=== PATIENT | male | born 1950 | race African-American/Black ===

== ENCOUNTER 2025-03-30 07:40 | Outpatient (OUT) | payer MEDICARE, SELFPAY ==
--- OUTSIDE RECORDS SUMMARY | 2025-03-25 09:00 | XMS_ITS | Encounter Summary ---
Author Organization [facility] Address [address] [place] [address] Care Team Providers Care Container Packer Operator Name Role Phone Jameson Cain MD Primary Care Provider [phone] Nidhi Brumfield NP Unavailable [phone] Reason for Referral * Consultation (Routine) - Authorized Specialty Diagnoses / Procedures Referred By Contodalis harding Referred To Contact General Surgery Diagnoses Screening for colon cancer Procedures AR OFFICE/OUTPATIENT NEW HIGH MDM 60 MINUTES April Benson NP [address] [place] [address] Phone: tel: fax: Anup Jo MD [address] [place] [address] Phone: tel: fax: Referral ID Status Reason Start Date Expiration Date Visits Requested Visits Authorized [id number] Authorized Specialty Services Required 03/25/2025 09/21/2025 1 1 Scheduling Instructions Would like procedure and office visit in [place] if possible Reason for Visit * Reason Comments Medicare Annual Wellness Visit Initial Encounter Details Date Type Department Care Team (Late st Contact Info) Description 03/25/2025 9:00 AM EDT Office Visit [facility] [address] [place] [address] April Benson NP [address] [place] [address] Medicare annual wellness visit, subsequent (Primary Dx); Type 2 diabetes mellitus with other specified complication (HCC); Male erectile dysfunction, unspecified; Benign essential HTN ; Uncontrolled type 2 diabetes mellitus with hyperglycemia (HCC); Mixed hyperlipidemia ; Screening for colon cancer Social History Tobacco Use Types Packs/Day Years Used Date Smoking Tobacco: Never Passive Smoke Exposure: Never Smokeless Tobacco: Never Alcohol Use Standard Drinks/Week Comments Never 0 (1 standard drink = 0.6 oz pur e alcohol) PHQ-2 Answer Date Recorded Patient Health Questionnaire-2 Score 0 03/25/2025 Sex and Gender Information Value Date Recorded Sex Assigned at Not on file Legal Sex Male 7:18 PM EDT Gender Identity Not on file Sexual Orientation Not on file documented as of this encounter Last Filed Vital Signs Vital Sign Reading Time Taken Comments Blood Pressure 132/80 03/25/2025 8:38 AM EDT Pulse 81 03/25/2025 8:38 AM EDT Temperature 36.6 C (97.8 F) 03/25/2025 8:38 AM EDT Respiratory Rate 18 03/25/2025 8:38 AM EDT Oxygen Saturation 97% 03/25/2025 8:38 AM EDT Inhaled Oxygen Concentration - - Weight 94.6 kg (208 lb 9.6 oz) 03/25/2025 8:38 A M EDT Height - - Body Mass Index 27.52 10/12/2024 2:27 PM EST documented in this encounter Functional Status * Over the past 2 weeks, how often have you been bothered by any of the following problems? Question Answer Date of Assessment Author Little interest or pleasure in doing things Not at all 03/25/2025 8:41 AM EDT GARY RESENDIZ Feeling down, depressed, or hopeless Not at all 03/25/2025 8:41 AM EDT GARY RESENDIZ Patient Health Questionnaire -2 Score 0 03/25/2025 8:41 AM EDT GARY RESENDIZ * Question Answer Date of Assessment Author Trouble falling or staying asleep, or sleeping too much Not at all 03/25/2025 8:41 AM PALMERT WILMA BACK Feeling tired or having darcie le energy Several days 03/25/2025 8:41 AM EDT GARY RESENDIZ Poor appetite or overeating Several days 03/25/2025 8: 41 AM EDT WILMA RESENDIZ Feeling bad about yourself - or that you are a failure or have let yourself or your family down Not at all 03/25/2025 8:41 AM EDT GARY RESENDIZ Trouble concentrating on things, such as reading the newspaper or watching television Not at all 03/25/2025 8:41 AM EDT GARY RESENDIZ A Moving or speaking so slowly that other people could have noticed? Or the opposite - being so fidgety or restless that you have been moving around a lot more than usual. Several days 03/25/2025 8:41 AM EDT WILMA URBAN Thoughts that you would be better off or hurting yourself in some way Not at all 03/25/2025 8:41 AM EDT WALLY RESENDIZ Patient Health Questionnaire -9 Score 3 03/25/2025 8:41 AM EDT GARY RESENDIZ documented as of this encounter Patient Instructions * Patient Instructions* April Benson NP - 03/25/2025 9:00 AM EDT Continued progress with diabetes Get labs fasting Colonoscopy: Dr Jo, the office should call you documented in this encounter Progress Notes * April Benson NP - 03/25/2025 9:20 AM EDTAssociated Problem(s): Medicare annual wellness visit, subsequent Reviewed Ht/Wt/BMI Recommend eye exam yearly Recommend dental exams twice a year Balance work/leisure activities Exercises is recommended most days of the week (appropriate as chronic conditions allow) Follow up yearly and prn * April Benson NP - 03/25/2025 9:00 AM EDT Images from the original note were not included. Milind Cisneros is a 74 y.o. male presents with chief complaint of Medicare Annual Wellness Visit Initial HPI: Diet: 1 meal daily, snacks Activity: used to swim Mental Health Concerns: none Falls in the last year: no Still driving: yes Do you pay your bills: yes Any hearing problems:age related hearing loss Any Vision problems: 2023, prescription Any Hospitalizations in the last year: no Specialist: no HCPOA/Living Will: yes Concerns: Diabetes He presents for his follow-up diabetic visit. He has type 2 diabetes mellitus. His disease course has been improving. There are no hypoglycemic associated symptoms. Pertinent negatives for hypoglycemia include no dizziness, nervousness/anxiousness, seizures or tremors. Associated symptoms include po lyuria. Pertinent negatives for diabetes include no blurred vision, no chest pain, no fatigue, no foot paresthesias, no polydipsia, no polyphagia and no visual change. There are no hypoglycemic complications. Symptoms are improving. Diabetic complications include nephropathy. Pertinent negatives for diabetic complications include no CVA, impotence or peripheral neuropathy. Risk factors for coronary artery disease include diabetes mellitus, dyslipidemia and male sex. Current diabetic treatment includes oral agent (triple therapy). He is compliant with treatment all of the time. An GABRIEL inhibitor/angiotensin II receptor yulia is not being taken. He does not see a fuel storage technician.Eye exam is current. SUBJECTIVE: MEDICATIONS: Current Outpatient Medications Medication Instructions aspirin 81 MG EC tablet Every 24 hours atorvastatin (LIPITOR) 20 mg, Oral, Daily glipiZIDE (GLUCOTROL) 10 mg, Oral, 2 times daily before meals loratadine (CLARITIN) 10 mg, Oral, Every 24 hours Multiple Vitamins-Minerals (Multivitamin Adults 50+) tablet Every 24 hours SITagliptin-metFORMIN ER (Janumet XR) 100-1000 MG per 24 hr tablet 1 tablet, Oral, Daily with breakfast ALLERGIES: No Known Allergies REVIEW OF SYMPTOMS: Review of Systems Constitutional: Negative for activity change, appetite change, fatigue and unexpected weight change. HENT: Negative for ear pain, nosebleeds, sneezing, trouble swallowing and voice change. Eyes: Negative for blurred vision, pain, discharge and visual disturbance. Respiratory: Negative for apnea, chest tightness and wheezing. Cardiovascular: Negative for chest pain and leg swelling. Gastrointestinal: Negative for abdominal distention, blood in stool, constipation and diarrhea. Genitourinary: Negative for decreased urine volume, difficulty urinating, dysuria, hematuria and impotence. Skin: Negative for color change. Neurological: Negative for dizziness, tremors and seizures. Psychiatric/Behavioral: Negative for agitation, decreased concentration, hallucinations, self-injury and suicidal ideas. The patient is not nervous/anxious. Hematological: Negative for adenopathy. Does not bruise/bleed easily. Endocrine: Positive for polyuria. Negative for cold intolerance, heat intolerance, polydipsia and polyphagia. Allergic/Immunologic: Negative for environmental allergies and food allergies. PAST MEDICAL HISTORY Past Medical History: Diagnosis Date HTN (hypertension) Hyperlipidemia Type II diabetes mellitus (HCC) History reviewed. No pertinent surgical history. family history includes No Known Problems in his father and mother. OBJECTIVE: Visit Vitals BP 132/80 (BP Location: Left arm, Patient Position: Sitting, BP Cuff Size: Adult long) Pulse 81 Temp 97.8 ??F (Temporal) Resp 18 Wt 208 lb 9.6 oz SpO2 97% BMI 27.52 kg/m?? Smoking Status Never BSA 2.21 m?? Physical Exam Vitals and nursing note reviewed. Constitutional: Appearance: Normal appearance. HENT: Head: Normocephalic. Right Ear: External ear normal. Left Ear: External ear normal. Nose: Nose normal. Mouth/Throat: Mouth: Mucous membranes are moist. Pharynx: Oropharynx is clear. Eyes: Extraocular Movements: Extraocular movements intact. Conjunctiva/sclera: Conjunctivae normal. Cardiovascular: Rate and Rhythm: Normal rate and regular rhythm. Pulses: Normal pulses. Heart sounds: Normal heart sounds. Pulmonary: Effort: Pulmonary effort is normal. Breath sounds: Normal breath sounds. Abdominal: General: Bowel sounds are normal. Palpations: Abdomen is soft. Musculoskeletal: Cervical back: Neck supple. Skin: General: Skin is warm and dry. Capillary Refill: Capillary refill takes 2 to 3 seconds. Neurological: General: No focal deficit present. Mental Status: He is alert. Psychiatric: Mood and Affect: Mood normal. Behavior: Behavior normal. Thought Content: Thought content normal. Judgment: Judgment normal. ASSESSMENT AND PLAN: Follow up in about 3 months (around 06/25/2025) for Recheck. Problem List Items Addressed This Visit Uncontrolled type 2 diabetes mellitus with hyperglycemia (HCC) (Chronic) Check blood sugars daily, notify if <70 or >200. Take medications (pills or insulin) as directed. Monitor for s/s of hypoglycemia (sweaty, dizziness, nausea, vomiting, or shakiness). Watch for increase in thirst, urination, or appetite. Inspect feet frequently monitoring for open wounds , andalso recommend yearly eye exam. Pt should attempt to remain as physically active as chronic conditions allow, as well as trying to follow a diet low in carbohydrates, and simple sugars. Current meds: asa, statin, RINCON, janumet XR A1c: 8.7% 03/25/25 prior 10/24 10.9% Reluctant to add meds, we will check labs, consider adding SGLT 2 or evening dose of metformin depending on Cr Relevant Orders POCT glycosylated hemoglobin (Hb A1C) docked device (Completed) Benign essential HTN Please check blood pressure daily and record DASH diet Limit caffeine Contact office if chest pain, pressure, dizziness, shortness of breath, swelling legs Current meds: none Hyperlipidemia On statin therapy Check labs yearly and prn dose change Type 2 diabetes mellitus with other specified complication (HCC) HLD, ED Male erectile dysfunction, unspecified Screening for colon cancer Relevant Orders Ambulatory referral to General Surgery Medicare annual wellness visit, subsequent - Primary Reviewed Ht/Wt/BMI Recommend eye exam yearly Recommend dental exams twice a year Balance work/leisure activities Exercises is recommended most days of the week (appropriate as chronic conditions allow) Follow up yearly and prn * April Benson NP - 03/25/2025 6:19 AM EDTAssociated Problem(s): Hyperlipidemia On statin therapy Check labs yearly and prn dose change * April Benson NP - 03/25/2025 6:19 AM EDTAssociated Problem(s): Uncontrolled type 2 diabetes mellitus with hyperglycemia (HCC) Check blood sugars daily, notify if <70 or >200. Take medications (pills or insulin) as directed. Monitor for s/s of hypoglycemia (sweaty, dizziness, nausea, vomiting, or shakiness). Watch for increase in thirst, urination, or appetite. Inspect feet frequently monitoring for open wounds , andalso recommend yearly eye exam. Pt should attempt to remain as physically active as chronic conditions allow, as well as trying to follow a diet low in carbohydrates, and simple sugars. Current meds: asa, statin, RINCON, janumet XR A1c: 8.7% 03/25/25 prior 10/24 10.9% Reluctant to add meds, we will check labs, consider adding SGLT 2 or evening dose of metformin depending on Cr * April Benson NP - 03/25/2025 6:18 AM EDTAssociated Problem(s): Type 2 diabetes mellitus with other specified complication (HCC) HLD, ED * April Benson NP - 03/25/2025 6:18 AM EDTAssociated Problem(s): Benign essential HTN Please check blood pressure daily and record DASH diet Limit caffeine Contact office if chest pain, pressure, dizziness, shortness of breath, swelling legs Current meds: none documented in this encounter Plan of Treatment Upcoming Encounters Date Type Department Care Team (Late st Contact Info) Description 06/28/2025 9:20 AM EDT Office Visit [facility] [address] [place] [address] April Benson NP [address] [place] [address] 03/28/2026 10:00 AM EDT Office Visit [facility] [address] [place] [address] April Benson NP [address] [place] [address] Scheduled Referrals Name Type Priority Associated Diagnoses Order Schedule Ambulatory referral to General Surgery Outpatient Referral Routine Screening for colon cancer Expected: 03/25/2025 (Approximate), Expires: 09/24/2025 documented as of this encounter Procedures Procedure Name Priority Date/Time Associated Diagnosis Comments POCT GLYCOSYLATED HEMOGLOBIN (HGB A1C) Routine 03/25/2025 9:00 AM EDT Uncontrolled type 2 diabetes mellitus with hyperglycemia (HCC) documented in this encounter Results * (ABNORMAL) POCT glycosylated hemoglobin (Hb A1C) docked device (03/25/2025 9:00 AM EDT) Hemoglobin A1C 8.7 Blood Venous blood specimen / Unknown 03/25/2025 9:00 AM EDT April Benson NP POINT OF CARE TEST ENTER/EDIT O RDERABLES Final Result documented in this encounter Visit Diagnoses Diagnosis Medicare annual wellness visit, subsequent- Primary Type 2 diabetes mellitus with other specified complication (HCC) Male erectile dysfunction, unspecified Benign essential HTN Uncontrolled type 2 diabetes mellitus with hyperglycemia (HCC) Mixed hyperlipidemia Mixed hyperlipidemia Screening for colon cancer Special screening for malignant neoplasms, colon documented in this encounter Additional Health Concerns Assessment Noted Time PHQ-9 Depression Total Score: 3 03/25/20 25 8:41 AM EDT documented as of this encounter Care Teams Container Packer Operator Relationship Specialty Start Date End Date Jameson Cain MD [address] [place] [address] PCP - General Family Medicine 06/11/24 Nidhi Brumfield NP [address] [place] [address] Nurse Practitioner Family Medicine 06/11/24 documented as of this encounter
--- OUTSIDE RECORDS SUMMARY | 2025-03-30 07:47 | XMS_ITS | Clinical Summary ---
Author Organization [facility] Address [address] [place] [address] Care Team Providers Care Supervising Broker Name Role Phone Unavailable Primary Care Provider Unavailabl e Medications aspirin EC 81 MG EC tablet TAKE 1 TABLET PO ONE TIME DAILY 0 0 1 Active Blood Glucose Monitoring Suppl (ONE TOUCH BASIC SYSTEM) W/DEVICE KITIndications:DM II (diabetes mellitus, type II), controlled (HCC) USE DIRECTED BY PHYSICIAN 1 0 3 Active metFORMIN (GLUCOPHAGE) 500 MG tabletIndications :DM II (diabetes mellitus, type II), controlled (HCC) Take one half tablet twice daily with breakfast and supper for 2 weeks then increase to one whole tablet twice daily for 2 weeks then increase to 1 and 1/2 tablets twice daily for 2 weeks then increase to 2 tablets twice daily thereafter. Take with breakfast and supper for diabetes. 360 1 3 Active glipiZIDE (GLUCOTROL) 5 MG tabletIndications :DM II (diabetes mellitus, type II), controlled (HCC) Take 1/2 tablet 30 minutes before breakfast and supper. If after one week, pre-meal blood sugars are still above 140, increase to one whole tablet before breakfast and supper. May increase or decrease dose to treat to target premeal blood sugars of 100-140, not to exceed 10 mg twice daily. 360 1 3 Active glipiZIDE (GLUCOTROL) 5 MG tablet TAKE 1/2 TABLET 30 MINUTES BEFORE BREAKFAST AND BEFORE DINNER, IF AFTER ONE WEEK THE PREMEAL BLOOD SUGAR IS STILL >140 INCREASE TO 1 WHOLE TABLET BEFORE BREAKFAST AND BEFORE DINNER MAY INCREASE OR DECREASE DOSE TO TREAT TO TARGET PREMEAL BS 100-140, NOT TO EXCEED 10MG TWICE DAILY 360 1 3 Active metFORMIN (GLUCOPHAGE) 500 MG tablet TAKE 1/2 TABLET TWICE DAILY WITH BREAKFAST AND WITH DINNER FOR 2 WEEKS, THEN TAKE 1 TABLET TWICE DAILY FOR 2 WEEKS, THEN TAKE 1 AND 1/2 TABLETS TWICE DAILY FOR 2 WEEKS, THEN TAKE 2 TABLETS TWICE DAILY THEREAFTER 360 1 3 Active Glucose Blood (BLOOD GLUCOSE TEST STRIPS) STRPIndications:D M (diabetes mellitus), type 2, uncontrolled USE DIRECTED BY PHYSICIAN 100 8 3 Active Active Problems Problem Noted Date Diagnosed Date DM (diabetes mellitus), type 2, uncontrolled DM (diabetes mellitus) 10/08/2012 Hyperlipidemia 01/18/2010 AR (allergic rhinitis) 03/21/2007 Resolved Problems Problem Noted Date Diagnosed Date Resolved Date DM (diabetes mellitus), type 2, uncontrolled 8 08/05/2008 DM (diabetes mellitus), type 2 03/23/2008 12/01/2012 Overview (06/17/2014): FOOT EXAM 01/07 EYE EXAM 2007 ED (erectile dysfunction) of organic origin 12/15/2007 07/04/2011 History of alcohol dependence 03/21/2007 01/20/2010 Overview (06/17/2014): HARD LIQUOR AND BEER 3-4X WEEK Family history of prostate cancer 03/21/2007 03/23/2008 Overview (06/17/2014): FATHER Family history of diabetes mellitus (DM) 03/21/2007 03/23/2008 Overview (06/17/2014): MOTHER Family History Medical History Relation Name Comments Prostate Cancer Father Diabetes Mother Relation Name Status Comments Father Mother Social History Tobacco Use Types Packs/Day Years Used Date Smoking Tobacco: Never Sex and Gender Information Value Date Recorded Sex Assigned at Not on file Legal Sex Male 7:49 PM EDT Gender Identity Not on file Sexual Orientation Not on file Last Filed Vital Signs Vital Sign Reading Time Taken Comments Blood Pressure 104/68 12/01/2012 4:13 PM EST Pulse 88 12/01/2012 4:13 PM EST Temperature 36.5 C (97.7 F) 12/01/2012 4:13 PM EST Respiratory Rate 20 12/01/2012 4:13 PM EST Oxygen Saturation - - Inhaled Oxygen Concentration - - Weight 101 kg (222 lb 9.6 oz) 12/01/2012 4:13 PM EST Height 185.4 cm (6' 1 ) 12/01/2012 4:13 PM EST Body Mass Index 29.37 12/01/2012 4:13 PM EST Plan of Treatment Not on file
--- OUTSIDE RECORDS SUMMARY | 2025-03-30 07:47 | XMS_ITS | Encounter Summary ---
Author Organization [facility] Address [address] [place] [address] Care Team Providers Care Reel Tender Name Role Phone Jameson Cain MD Primary Care Provider [phone] Nidhi Brumfield CERTIFIED PUBLIC ACCOUNTANT Unavailable [phone] Reason for Visit * Reason Comments Med Refill Encounter Details Date Type Department Care Team (Late st Contact Info) Description 03/01/2024 Refill [facility] [address] [place] [phone] Shaikh Choi MD [address] [place] [address] Type 2 diabetes mellitus without complication, without long-term current use of insulin (HCC) Social History Tobacco Use Types Packs/Day Years Used Date Smoking Tobacco: Never Assessed Sex and Gender Information Value Date Recorded Sex Assigned at Not on file Legal Sex Male 7:18 PM EDT Gender Identity Not on file Sexual Orientation Not on file documented as of this encounter Plan of Treatment Upcoming Encounters Date Type Department Care Team (Late Contact Info) Description 06/28/2025 9:20 AM EDT Office Visit [facility] [address] [place] [address] April Benson NP [address] [place] [phone] 03/28/2026 10:00 AM EDT Office Visit [facility] [address] [place] [address] April Benson NP [address] [place] [address] documented as of this encounter Visit Diagnoses Diagnosis Type 2 diabetes mellitus without complication, without long-term current use of insulin (HCC) documented in this encounter Care Teams Reel Tender Relationship Specialty Start Date End Date Jameson Cain MD [address] [place] [address] PCP - General Family Medicine 06/11/24 Nidhi Brumfield NP [address] [place] [phone] Nurse Practitioner Family Medicine 06/11/24 documented as of this encounter
--- OUTSIDE RECORDS SUMMARY | 2025-03-30 07:47 | XMS_ITS | Encounter Summary ---
Author Organization [facility] Address [address] [place] [address] Care Team Providers Care Food Consultant Name Role Phone Jameson Cain MD Primary Care Provider [phone] Nidhi Brumfield NP Unavailable [phone] Reason for Visit * Reason Comments Med Refill Encounter Details Date Type Department Care Team (Late st Contact Info) Description 08/30/2023 Refill [facility] [address] [place] [address] Shaikh Choi MD [address] [place] [phone] Type 2 diabetes mellitus without complication, without long-term current use of insulin (HCC) (Primary Dx) Social History Tobacco Use Types Packs/Day Years Used Date Smoking Tobacco: Never Assessed Sex and Gender Information Value Date Recorded Sex Assigned at Not on file Legal Sex Male 7:18 PM EDT Gender Identity Not on file Sexual Orientation Not on file documented as of this encounter Miscellaneous Notes * Telephone Encounter - Shaikh Steph MD - 09/02/2023 1:23 PM EST Approving, but needs appt for additional refills. documented in this encounter Plan of Treatment Upcoming Encounters Date Type Department Care Team (Late st Contact Info) Description 06/28/2025 9:20 AM EDT Office Visit [facility] [address] [place] [address] April Benson, MARILYNN [address] [place] [phone] 03/28/2026 10:00 AM EDT Office Visit [facility] [address] [place] [address] April Benson, MARILYNN [address] [place] [address] documented as of this encounter Visit Diagnoses Diagnosis Type 2 diabetes mellitus without complication, without long-term current use of insulin (HCC)- Primary documented in this encounter Care Teams Food Consultant Relationship Specialty Start Date End Date Jameson Cain MD [address] [place] [phone] PCP - General Family Medicine 06/11/24 Nidhi Brumfield NP [address] [place] [phone] Nurse Practitioner Family Medicine 06/11/24 documented as of this encounter
--- OUTSIDE RECORDS SUMMARY | 2025-03-30 07:47 | XMS_ITS | Clinical Summary ---
Author Organization [facility] tem Address [id number] [address] [place] [address] Care Team Providers Care Commercial Fisherman Name Role Phone Nidhi Brumfield SURFACE WATER MANAGER-NOCTURNIST Primary Care Pr ovider Social History Tobacco Use Types Packs/Day Years Used Date Smoking Tobacco: Never Assessed Childcare Answer Date Recorded Childcare Unknown 03/11/2019 Employment Answer Date Recorded Employment Unknown 03/11/2019 Sex and Gender Information Value Date Recorded Sex Assigned at Not on file Legal Sex Male 11:38 AM EDT Gender Identity Not on file Sexual Orientation Not on file Plan of Treatment Health Maintenance Due Date Last Done Comments Diabetic Ophthalmology Exam 1951 Depression Screening 1963 Tobacco Screening 1963 Adult BMI Screening 1969 Diabetic Foot Exam 1969 DTaP,Tdap and Td Vaccines (1 - Tdap) 1970 Zoster (Shingles) Vaccine (1 of 2) 2001 Fall Risk Screening 2016 COVID-19 Vaccine ( season) 2024, 12/23/2020 Influenza Vaccine 05/31/2025 Medical Devices Not on file Insurance [employer] MEDICARE Care Teams Commercial Fisherman Relationship Specialty Start Date End Date Nidhi Brumfield APRN-NOCTURNIST [address] [place] [address] PCP - General Nurse Practitioner 06/25/24
--- OUTSIDE RECORDS SUMMARY | 2025-03-30 07:47 | XMS_ITS | Encounter Summary ---
Author Organization [facility] Address [address] [place] [address] Care Team Providers Care Inspector Line Name Role Phone Jameson Cain MD Primary Care Provider [phone] Nidhi Brumfield ACADEMIC AFFAIRS ASSISTANT Unavailable [phone] Reason for Visit * Reason Comments Med Refill Encounter Details Date Type Department Care Team (Late Contact Info) Description 03/17/2025 Refill [facility] [address] [place] [phone] Jameson Cain MD [address] [place] [address] Mixed hyperlipidemia Social History Tobacco Use Types Packs/Day Years Used Date Smoking Tobacco: Never Passive Smoke Exposure: Never Smokeless Tobacco: Never Alcohol Use Standard Drinks/Week Comments Never 0 (1 standard drink = 0.6 oz pur e alcohol) PHQ-2 Answer Date Recorded Patient Health Questionnaire-2 Score 0 06/22/2024 Sex and Gender Information Value Date Recorded Sex Assigned at Not on file Legal Sex Male 7:18 PM EDT Gender Identity Not on file Sexual Orientation Not on file documented as of this encounter Miscellaneous Notes * Telephone Encounter - LINDA HERNÁNDEZ - 03/18/2025 8:22 AM EDT MEDICATION SENT TO [facility] documented in this encounter Plan of Treatment Upcoming Encounters Date Type Department Care Team (Late Contact Info) Description 06/28/2025 9:20 AM EDT Office Visit [facility] [address] [place] [address] April Benson, MARILYNN [address] [place] [address] 03/28/2026 10:00 AM EDT Office Visit [facility] [address] [place] [address] April Benson, MARILYNN [address] [place] [phone] documented as of this encounter Visit Diagnoses Diagnosis Mixed hyperlipidemia Mixed hyperlipidemia documented in this encounter Care Teams Inspector Line Relationship Specialty Start Date End Date Jameson Cain MD [address] [place] [phone] PCP - General Family Medicine 06/11/24 Nidhi Brumfield NP [address] [place] [phone] Nurse Practitioner Family Medicine 06/11/24 documented as of this encounter
--- OUTSIDE RECORDS SUMMARY | 2025-03-30 07:47 | XMS_ITS | Encounter Summary ---
Author Organization [facility] Address [address] [place] [address] Care Team Providers Care Auto Radio Mechanic Name Role Phone Jameson Cain MD Primary Care Provider [phone] Nidhi Brumfield NP Unavailable [phone] Reason for Visit * Reason Comments Med Refill Encounter Details Date Type Department Care Team (Late Contact Info) Description 03/17/2025 Refill [facility] [address] [place] [address] April Benson NP [address] [facility] [place] [address] Type 2 diabetes mellitus without complication, without [...] 06/28/2025 9:20 AM EDT Office Visit [facility] [address] [place] [address] April Benson NP [address] [place] [address] 03/28/2026 10:00 AM EDT Office Visit [facility] [address] [place] [address] April Benson NP [address] [place] [address] documented as of this encounter Visit Diagnoses Diagnosis Type 2 diabetes mellitus without complication, without long-term current use of insulin (HCC) documented in this encounter Care Teams Auto Radio Mechanic Relationship Specialty Start Date End Date Jameson Cain MD [address] [place] [phone] PCP - General Family Medicine 06/11/24 Nidhi Brumfield NP [address] [place] [phone] Nurse Practitioner Family Medicine 06/11/24 documented as of this encounter
--- OUTSIDE RECORDS SUMMARY | 2025-03-30 07:47 | XMS_ITS | Encounter Summary ---
Author Organization [facility] Address [address] [place] [address] Care Team Providers Care Escalator Installer Name Role Phone Jameson Cain MD Primary Care Provider [phone] Nidhi Brumfield NP Unavailable [phone] Reason for Visit * Reason Comments Med Refill Encounter Details Date Type Department Care Team (Late Contact Info) Description 12/25/2023 Refill [facility] [address] [place] [address] Shaikh Choi MD [address] [place] [address] Social History Tobacco Use Types Packs/Day Years [...] 06/28/2025 9:20 AM EDT Office Visit [facility] [address] [place] [address] April Benson NP [address] [place] [phone] 03/28/2026 10:00 AM EDT Office Visit [facility] [address] [place] [address] April Benson NP [address] [place] [address] documented as of this encounter Visit Diagnoses Not on filedocumented in this encounter Care Teams Escalator Installer Relationship Specialty Start Date End Date Jameson Cain MD [address] [place] [address] PCP - General Family Medicine 06/11/24 Nidhi Brumfield NP [address] [place] [address] Nurse Practitioner Family Medicine 06/11/24 documented as of this encounter
--- OUTSIDE RECORDS SUMMARY | 2025-03-30 07:47 | XMS_ITS | Clinical Summary ---
Author Organization [facility] Address [address] [place] [address] Care Team Providers Care Corsets Salesperson Name Role Phone Jameson Cain MD Primary Care Provider [phone] Nidhi Brumfield NP Unavailable [phone] Allergies No known active allergies Medications aspirin 81 MG EC tablet 1 (one) time each day at the same time Active Multiple Vitamins-Minerals (Multivitamin Adults 50+) tablet 1 (one) time each day at the same time Active SITagliptin-metFOR MIN ER (Janumet XR) 100-1000 MG per 24 hr tabletIndications: Uncontrolled type 2 diabetes mellitus with hyperglycemia (HCC) Take 1 tablet by mouth in the morning. Take with meals. 90 tablet 3 10/12/19 25 026 Active loratadine (Claritin) 10 MG tabletIndications: Allergic rhinitis, unspecified seasonality, unspecified trigger Take 1 tablet (10 mg) by mouth 1 (one) time each day at the same time 30 tablet 5 01/15/20 25 Active glipiZIDE (Glucotrol) 10 MG tabletIndications: Type 2 diabetes mellitus without complication, without long-term current use of insulin (HCC) Take 1 tablet (10 mg) by mouth in the morning and 1 tablet (10 mg) in the evening. Take before meals. 180 tablet 01/20/20 25 025 Active atorvastatin (Lipitor) 20 MG tabletIndications: Mixed hyperlipidemia TAKE 1 TABLET BY MOUTH DAILY 90 tablet 3 03/18/20 25 Active atorvastatin (Lipitor) 20 MG tabletIndications: Mixed hyperlipidemia Take 1 tablet (20 mg) by mouth Daily 90 tablet 01/15/20 25 025 Discontinued Active Problems Problem Noted Date Diagnosed Date Screening for colon cancer 03/25/2025 Medicare annual wellness visit, subsequent 03/25 Assessment & Plan (03/25/2025 9:20 AM EDT): Reviewed Ht/Wt/BMI Recommend eye exam yearly Recommend dental exams twice a year Balance work/leisure activities Exercises is recommended most days of the week (appropriate as chronic conditions allow) Follow up yearly and prn Type 2 diabetes mellitus with other specified co mplication 02/25/2025 Assessment & Plan (03/25/2025 6:18 AM EDT): HLD, ED Male erectile dysfunction, unspecified Screening for prostate cancer 02/25/2025 Benign essential HTN 06/22/2024 Assessment & Plan (03/25/2025 6:18 AM EDT): Please check blood pressure daily and record DASH diet Limit caffeine Contact office if chest pain, pressure, dizziness, shortness of breath, swelling legs Current meds: none Assessment & Plan (10/12/2024 3:01 PM EST): Currently not taking any medications Does not check BP at home; Denies orthostatic changes, dizziness, cough, shortness of breath, swelling in extremities. Averages at home 125/72. Consistently less than 30/80; Although is slightly elevated in office today. Continue current regimen. Given BP log, advised pt to record BP and bring log back with them to next visit. Assessment & Plan (06/23/2024 12:04 PM EDT): Currently not taking any medications Does not check BP at home; Denies orthostatic changes, dizziness, cough, shortness of breath, swelling in extremities. Continue current regimen. Given BP log, advised pt to record BP and bring log back with them to next visit. Uncontrolled type 2 diabetes mellitus with hyper glycemia 01/26/2013 Assessment & Plan (03/25/2025 9:28 AM EDT): Check blood sugars daily, notify if <70 or >200. Take medications (pills or insulin) as directed. Monitor for s/s of hypoglycemia (sweaty, dizziness, nausea, vomiting, or shakiness). Watch for increase in thirst, urination, or appetite. Inspect feet frequently monitoring for open wounds , and also recommend yearly eye exam. Pt should attempt to remain as physically active as chronic conditions allow, as well as trying to follow a diet low in carbohydrates, and simple sugars. Current meds: asa, statin, RINCON, janumet XR A1c: 8.7% 03/25/25 prior 10/24 10.9% Reluctant to add meds, we will check labs, consider adding SGLT 2 or evening dose of metformin depending on Cr Assessment & Plan (10/12/2024 3:18 PM EST): Currently taking Glipizide and Janumet 50mg-100mg Most recent labs: hemoglobin A1C 12.8% Does not check FSBS At home; Increased Janumet dosing today. Pt is reluctant to start Lantus, requests opportunity to manage BG levels without injectables at this time. Advised pt to closely monitor BG levels and change diet regimen. Will recheck levels in 3 months. If no improvement at that time will need to initiate Lantus. No episode of hypoglycemia No medication adverse effects reported by the patient. Patient educated on lifestyle modifications, dietary restrictions, signs and symptoms of hypoglycemia/hyperglycemia and importance of eating regular consistent meals. Stressed upon importance of checking blood glucose at home and bring blood glucose log to appointments. All questions, concerns answered and addressed. Encouraged to call office if persistent hypoglycemia/hyperglycemia on home glucose monitoring noted. Assessment & Plan (06/22/2024 10:59 AM EDT): Currently taking Glipizide and Janumet 50mg-100mg Most recent labs: hemoglobin A1C NEEDS DONE; Ordered today Does not check FSBS At home; No episode of hypoglycemia No medication adverse effects reported by the patient. Patient educated on lifestyle modifications, dietary restrictions, signs and symptoms of hypoglycemia/hyperglycemia and importance of eating regular consistent meals. Stressed upon importance of checking blood glucose at home and bring blood glucose log to appointments. All questions, concerns answered and addressed. Encouraged to call office if persistent hypoglycemia/hyperglycemia on home glucose monitoring noted. DM Eye Exam Last year: Is scheduling exam; Hyperlipidemia 01/18/2010 Assessment & Plan (03/25/2025 6:19 AM EDT): On statin therapy Check labs yearly and prn dose change Assessment & Plan (10/12/2024 3:02 PM EST): Currently taking Atorvastatin 20mg Denies any myalgias. Needs Lipid panel done. Ordered today Continue current regimen. Assessment & Plan (06/22/2024 10:59 AM EDT): Currently taking Atorvastatin 20mg Denies any myalgias. Needs Lipid panel done. Ordered today Continue current regimen. AR (allergic rhinitis) 03/21/2007 Resolved Problems Problem Noted Date Diagnosed Date Resolved Date Erectile dysfunction 06/22/2024 025 Encounters Date Type Department Care Team Description 03/25/2025 9:00 AM EDT Office Visit [facility] [address] [place] [address] April Benson NP Medicare annual wellness visit, subsequent (Primary Dx); Type 2 diabetes mellitus with other specified complication (HCC); Male erectile dysfunction, unspecified; Benign essential HTN ; Uncontrolled type 2 diabetes mellitus with hyperglycemia (HCC); Mixed hyperlipidemia ; Screening for colon cancer 03/25/2025 Bamboo flowsheet [facility] [address] [place] [address] April Benson NP 03/17/2025 Refill [facility] [address] [place] [address] April Benson NP Type 2 diabetes mellitus without complication, without long-term current use of insulin (HCC) 03/17/2025 Refill [facility] [address] [place] [address] Jameson Cain MD Mixed hyperlipidemia 01/18/2025 Refill [facility] [address] [place] [address] April Benson NP Type 2 diabetes mellitus without complication, without long-term current use of insulin ([facility]) 01/14/2025 Refill [facility] [address] [place] [phone] Jameson Cain MD Allergic rhinitis, unspecified seasonality, unspecified trigger (Primary Dx); Mixed hyperlipidemia from Last 3 Months Immunizations Immunization Administration Dates Next Due Moderna SARS-CoV-2 Vaccination 01/20/2021,2020 Family History Medical History Relation Name Comments No Known Problems Father No Known Problems Mother Relation Name Status Comments Father Mother Social History Tobacco Use Types Packs/Day Years Used Date Smoking Tobacco: Never Passive Smoke Exposure: Never Smokeless Tobacco: Never Tobacco Cessation:Counseling Given: Not Answered Alcohol Use Standard Drinks/Week Comments Never 0 [...] oz) 03/25/2025 8:38 A M EDT Height 185.4 cm (6' 1 ) 10/12/2024 2:27 PM EST Body Mass Index 27.52 10/12/2024 2:27 PM EST Plan of Treatment Upcoming Encounters Date Type Department Care Team (Late st Contact Info) Description 06/28/2025 9:20 AM EDT Office Visit [facility] [address] [place] [address] April Benson, MARILYNN [address] [place] [address] 03/28/2026 10:00 AM EDT Office Visit [facility] [address] [place] [phone] April Benson, METER MECHANIC [address] [place] [address] Health Maintenance Due Date Last Done Comments CT Colonography 1951 FIT-DNA 1950 FIT 1950 FOBT 1950 Sigmoidoscopy 1950 Colonoscopy 08/05/2024 08/05/2014 Diabetes: Hemoglobin A1C 06/25/2025 025, 06/25/2024, 02/06/2021, Additional history exists Diabetes: Urine Protein Screening 06/25/2025 06/25/2024, 06/25/2024, 02/06/2021, Additional history exists Colorectal Cancer Screening 10/12/2025 Postponed from 1951 (Patient Refused) Pneumococcal Vaccine: 65+ Years (1 of 2 - PCV) 10/12/2025 Postponed from 1970 (Patient Refused) Medicare Annual Wellness (AWV) 03/25/2026 03/25/2025 Diabetes: Retinopathy Screening 06/12/2026 06/12/2024 Influenza Vaccine Discontinued Procedures Procedure Name Priority Date/Time Associated Diagnosis Comments POCT GLYCOSYLATED HEMOGLOBIN (HGB A1C) Routine 03/25/2025 9:00 AM EDT Uncontrolled type 2 diabetes mellitus with hyperglycemia (HCC) MICROALBUMIN / CREATININE URINE RATIO Routine 02/06/2021 COLONOSCOPY Routine 08/05/2014 12:00 PM EST from Last 3 Months or Most Recently Relevant to Health Maintenance Results * (ABNORMAL) POCT glycosylated hemoglobin (Hb A1C) docked device (03/25/2025 9:00 AM EDT) Hemoglobin A1C 8.7 Blood Venous blood specimen / Unknown 03/25/2025 9:00 AM EDT April Benson METER MECHANIC POINT OF CARE TEST ENTER/EDIT O RDERABLES Final Result * Microalbumin / creatinine urine ratio (02/06/2021) UCREA 163 39 - 259 [facility] MALB 4.3 [facility] Comment:mALB reference range not established. MICROALB/CREAT RATIO 26.4 [facility] 02/06/2021 Whitney Holloway MD LAB URINE ORDERABLES Final Resul t [facility] * Colonoscopy (08/05/2014 12:00 PM EST) Anatomical Region Laterality Modality Endoscopy 08/05/2014 12:0 0 PM EST Narrative 08/05/2014 12:00 PM EST PERFORMED AT [facility] LOCATION:[id number] Procedure Note CONVERSION, GENERIC - 02/14/2023 PERFORMED AT [facility] LOCATION:[id number] Zachery Joseph ENDOSCOPY PROCEDURE ORDERABLES F inal Result from Last 3 Months or Most Recently Relevant to Health Maintenance Insurance [employer] MEDICARE Care Teams Corsets Salesperson Relationship Specialty Start Date End Date Jameson Cain MD [address] [place] [address] PCP - General Family Medicine 06/11/24 Nidhi Brumfield NP [address] [place] [address] Nurse Practitioner Family Medicine 06/11/24
[2025-03-30 08:26] LABS: Hematocrit 40.5 % (42.0-54.0); Hemoglobin 13.2 g/dL (14.0-18.0); Immature Granulocytes Abs Auto 0.01 10^3/uL (0.00-0.03); Immature Granulocytes Pct Auto 0.2 % (0.0-0.5); Lymphocytes Absolute Auto 1.8 10^3/uL (1.2-3.8); Mean Corpuscular HGB Conc 32.6 g/dL (29.9-35.2); Mean Corpuscular Hemoglobin 27.4 pg (25.9-34.0); Mean Corpuscular Volume 84.2 fL (80.0-94.0); Platelet Count 207 10^3/uL (150-450); Red Blood Count 4.81 10^6/uL (4.70-6.10); White Blood Count 5.4 10^3/uL (4.0-11.0)
[2025-03-30 08:32] LABS: Glucose Urine UA NEGATIVE (NEGATIVE)
[2025-03-30 09:11] LABS: Microalbum Creatinine Ratio Ur 75.9 mg/g (0.0-29.9)
[2025-03-30 09:39] LABS: Alanine Aminotransferase 25 U/L (16-63); Albumin Globulin Ratio 1.0; Albumin Level 3.7 g/dL (3.4-5.0); Alkaline Phosphatase 64 U/L (46-116); Anion Gap 14.8; Aspartate Amino Transferase 17 U/L (15-37); Blood Urea Nitrogen 17.0 mg/dL (7.0-18.0); Calcium 9.6 mg/dL (8.5-10.1); Carbon Dioxide 27.3 mmol/L (21.0-32.0); Chloride 105 mmol/L (98-107); Cholesterol 94 mg/dL (<=200); Estimated GFR (African America >60 (>=60 mL/min/1.73m^2); Estimated GFR (Non-African Ame >60 (>=60 mL/min/1.73m^2); Globulin 3.8 g/dL; Glucose 149 mg/dL (74-106); HDL Cholesterol 37 mg/dL (40-60); Potassium 4.1 mmol/L (3.5-5.1); Sodium 143 mmol/L (136-145); Total Protein 7.5 g/dL (6.4-8.2); Triglycerides 88 mg/dL (<=150); VLDL CHOLESTEROL 17.6 mg/dL
== END 2025-03-30 07:41 | disposition home or self-care (01) ==
PROVIDERS: PCP Nurse Practitioner; Visit Provider Nurse Practitioner
DX: Z12.5 Encounter for screening for malignant neoplasm of prostate (principal); E11.65 Type 2 diabetes mellitus with hyperglycemia; E78.2 Mixed hyperlipidemia
CPT/HCPCS: 36415; 80053; 80061; 81003; 82043; 82570; 85025; G0103